=== PATIENT | female | born 1990 | race Asian ===

== ENCOUNTER 2016-10-25 20:04 | Emergency (ER) | payer OTHER ==
[~2016-10-25] VITALS: Ht 154.9 cm; Wt 56.8 kg
[~2016-10-25 20:04] MED LIST: BIRTH CONTROL; FOLIC ACID0.4 MG PO; IBU600 MG PO; MOTRIN 600600 MG/TAB PO; PERCOCET 325 MG1 TA2 PO; PHENERGAN25 MG RC; PRENATAL1 TA1 PO; PRENATAL1 TA7 PO; ZOFRAN 4MG T4 MG/TAB PO
[2016-10-25 20:13] VITALS: BP 119/70; TEMP 98.2
[2016-10-25 21:15] LABS: BASO % 0.4 % (0.0-2.0); EOS # 0.2 (0.0-0.7); EOS % 3.9 % (0-4.0); GRAN # 2.4 (1.4-6.5); GRAN % 49.1 % (42.2-75.2); HEMATOCRIT 37.2 % (37.0-47.0); HEMOGLOBIN 12.1 g/dl (12.5-16.0); LYMPH # 1.7 (1.2-3.4); LYMPH % 34.8 % (20.0-51.0); MEAN CELL VOLUME 91 fl (80.0-100.0); MEAN CORPUSCULAR HEMOGLOBIN 30 pg (27.0-31.0); MEAN CORPUSCULAR HGB CONC 33 g/dl (33.0-37.0); MONO # 0.6 (0.1-0.6); MONO % 11.6 % (1.7-9.3); PLATELET COUNT 232 K/mm3 (130-400); RED BLOOD COUNT 4.09 M/mm3 (4.10-5.30); REDCELL DISTRIBUTION WIDTH-CV 12.7 % (11.5-14.5); WHITE BLOOD COUNT 4.9 K/mm3 (4.8-10.8)
[2016-10-25 21:26] LABS: ADJUSTED CALCIUM 9.2 mg/dL (8.4-10.2); ALBUMIN 4.6 gm/dL (3.5-5.0); BILIRUBIN,TOTAL 0.7 mg/dL (0.0-1.0); CALCIUM 9.7 mg/dL (8.4-10.2); CREATININE, serum 0.4 mg/dL (0.52-1.25); POTASSIUM 3.4 mmol/L (3.4-5.0); TOTAL PROTEIN 8.1 gm/dL (6.4-8.2)
[2016-10-25 21:31] LABS: PH 5 (5-8); URINE APPEARANCE Clear; URINE BACTERIA None Seen /hpf; URINE BILIRUBIN Negative (NEGATIVE); URINE BLOOD 1+ (NEGATIVE); URINE COLOR Yellow; URINE GLUCOSE Negative (NEGATIVE); URINE KETONE Negative (NEGATIVE); URINE RBC 0-2 /hpf; URINE UROBILINOGEN Negative (NEGATIVE); URINE WBC 0-2 /hpf
[2016-10-25] MEDS ORDERED: ZOFRAN ODT4 MG PO (22:19)
[2016-10-25 22:20] VITALS: PULSE 88
== END 2016-10-25 22:20 | disposition home or self-care (01) ==
LOC: COL.ER 20:04
PROVIDERS: Family Medicine
DX: R10.11 Right upper quadrant pain (principal); R11.0 Nausea
CPT/HCPCS: J2405; J7030

== ENCOUNTER 2017-05-21 13:49 | Emergency (ER) | payer OTHER ==
[~2017-05-21 13:49] MED LIST changes: +ZOFRAN ODT4 MG PO
[2017-05-21 13:52] VITALS: BP 115/72; TEMP 98.1
[2017-05-21 14:37] LABS: HEMATOCRIT 37.4 % (37.0-47.0); MEAN CELL VOLUME 94 fl (80.0-100.0); MEAN CORPUSCULAR HEMOGLOBIN 30 pg (27.0-31.0); MEAN CORPUSCULAR HGB CONC 32 g/dl (33.0-37.0); MEAN PLATELET VOLUME 9.7 fl (7.4-10.4); PLATELET COUNT 233 K/mm3 (130-400); WHITE BLOOD COUNT 2.8 K/mm3 (4.8-10.8)
[2017-05-21 14:55] LABS: ADJUSTED CALCIUM 8.7 mg/dL (8.4-10.2); ALBUMIN 4.8 gm/dL (3.5-5.0); BILIRUBIN,TOTAL 0.6 mg/dL (0.0-1.0); CALCIUM 9.3 mg/dL (8.4-10.2); CREATININE, serum 0.44 mg/dL (0.52-1.25); TOTAL PROTEIN 8.3 gm/dL (6.4-8.2)
[2017-05-21 15:13] LABS: COLLECTION METHOD CLEAN CATCH
[2017-05-21 15:23] LABS: MUCOUS Present /lpf; PH 6 (5-8); SQUAMOUS EPITHELIAL 0-2 /hpf; URINE APPEARANCE Clear; URINE BACTERIA None Seen /hpf; URINE BILIRUBIN Negative (NEGATIVE); URINE BLOOD 2+ (NEGATIVE); URINE COLOR Yellow; URINE GLUCOSE Negative (NEGATIVE); URINE KETONE Negative (NEGATIVE); URINE LEUKOCYTE ESTERASE Negative (NEGATIVE); URINE PROTEIN(semi-quant) Negative (NEGATIVE); URINE RBC 0-2 /hpf; URINE UROBILINOGEN Negative (NEGATIVE); URINE WBC 0-2 /hpf
[2017-05-21 15:25] LABS: TSH w REFLEX 1.42 uIU/mL (0.465-4.680)
[2017-05-21 15:37] VITALS: PULSE 90
== END 2017-05-21 15:37 | disposition home or self-care (01) ==
LOC: COL.ER 13:49
PROVIDERS: Physician Assistant Medical
DX: R55 Syncope and collapse (principal)

== ENCOUNTER 2017-09-18 12:28 | Emergency (ER) | payer OTHER ==
[~2017-09-18] VITALS: Ht 154.9 cm; Wt 58.0 kg
[2017-09-18 12:34] VITALS: TEMP 98.5
[2017-09-18] MEDS ORDERED: SPRINTEC 35 MCG1 TAB PO (12:37)
[2017-09-18 13:08] LABS: COLLECTION METHOD CLEAN CATCH
[2017-09-18 13:17] LABS: MUCOUS Present /lpf; PH 5 (5-8); SQUAMOUS EPITHELIAL 0-2 /hpf; URINE APPEARANCE Hazy; URINE BACTERIA None Seen /hpf; URINE BILIRUBIN Negative (NEGATIVE); URINE BLOOD Negative (NEGATIVE); URINE COLOR Yellow; URINE GLUCOSE Negative (NEGATIVE); URINE KETONE Negative (NEGATIVE); URINE LEUKOCYTE ESTERASE Negative (NEGATIVE); URINE NITRATE Negative (NEGATIVE); URINE PROTEIN(semi-quant) Negative (NEGATIVE); URINE RBC 0-2 /hpf; URINE UROBILINOGEN Negative (NEGATIVE)
[2017-09-18 13:38] LABS: BASO % 0.2 % (0.0-2.0); EOS # 0.1 (0.0-0.7); EOS % 2.8 % (0-4.0); GRAN # 2.6 (1.4-6.5); GRAN % 60.3 % (42.2-75.2); LYMPH # 1.1 (1.2-3.4); LYMPH % 26.2 % (20.0-51.0); MEAN CELL VOLUME 90 fl (80.0-100.0); MEAN CORPUSCULAR HGB CONC 33 g/dl (33.0-37.0); MEAN PLATELET VOLUME 9.9 fl (7.4-10.4); MONO # 0.4 (0.1-0.6); MONO % 10.3 % (1.7-9.3); PLATELET COUNT 218 K/mm3 (130-400); RED BLOOD COUNT 3.88 M/mm3 (4.10-5.30); REDCELL DISTRIBUTION WIDTH-CV 12.3 % (11.5-14.5)
[2017-09-18 13:41] LABS: ALBUMIN 4.3 gm/dL (3.5-5.0); BILIRUBIN,TOTAL 0.6 mg/dL (0.0-1.0); C-REACTIVE PROTEIN 0.6 mg/dL (0.0-0.9); CALCIUM 9.2 mg/dL (8.4-10.2); CREATININE, serum 0.4 mg/dL (0.52-1.25); HEMOGLOBIN 11.6 g/dl (12.5-16.0); MEAN CORPUSCULAR HEMOGLOBIN 30 pg (27.0-31.0); TOTAL PROTEIN 8.2 gm/dL (6.4-8.2)
[2017-09-18 14:43] VITALS: BP 112/80; PULSE 86
== END 2017-09-18 14:44 | disposition home or self-care (01) ==
LOC: COL.ER 12:28
PROVIDERS: Physician Assistant
DX: R10.11 Right upper quadrant pain (principal)
CPT/HCPCS: J2405; J7030

== ENCOUNTER → 2017-09-20 | Outpatient (CLI) | payer OTHER ==
[~2017-09-20] MED LIST changes: +SPRINTEC 35 MCG1 TAB PO
== END ==
LOC: COL.RAD 09:59
DX: R10.11 Right upper quadrant pain (principal)
CPT/HCPCS: A9537; J2805

== ENCOUNTER 2018-07-17 10:10 | Emergency (ER) | payer OTHER ==
[~2018-07-17] VITALS: Ht 152.4 cm; Wt 55.5 kg
[2018-07-17 10:14] VITALS: TEMP 98.1
[2018-07-17 10:37] LABS: COLLECTION METHOD CLEAN CATCH
[2018-07-17 10:42] LABS: BASO % 0.3 % (0.0-2.0); EOS # 0.1 (0.0-0.7); EOS % 2.6 % (0-4.0); GRAN # 1.8 (1.4-6.5); GRAN % 46.7 % (42.2-75.2); HEMATOCRIT 38.7 % (37.0-47.0); HEMOGLOBIN 12.6 g/dl (12.5-16.0); LYMPH # 1.5 (1.2-3.4); LYMPH % 39.4 % (20.0-51.0); MEAN CELL VOLUME 92 fl (80.0-100.0); MEAN CORPUSCULAR HEMOGLOBIN 30 pg (27.0-31.0); MEAN CORPUSCULAR HGB CONC 33 g/dl (33.0-37.0); MEAN PLATELET VOLUME 10.2 fl (7.4-10.4); MONO # 0.4 (0.1-0.6); MONO % 10.2 % (1.7-9.3); PLATELET COUNT 260 K/mm3 (130-400); REDCELL DISTRIBUTION WIDTH-CV 12.5 % (11.5-14.5)
[2018-07-17 10:44] LABS: MUCOUS Present /lpf; PH 5 (5-8); SQUAMOUS EPITHELIAL 0-2 /hpf; URINE APPEARANCE Clear; URINE BACTERIA None Seen /hpf; URINE BILIRUBIN Negative (NEGATIVE); URINE BLOOD Negative (NEGATIVE); URINE COLOR Yellow; URINE GLUCOSE Negative (NEGATIVE); URINE KETONE Negative (NEGATIVE); URINE LEUKOCYTE ESTERASE Negative (NEGATIVE); URINE NITRATE Negative (NEGATIVE); URINE PROTEIN(semi-quant) Negative (NEGATIVE); URINE RBC 0-2 /hpf; URINE UROBILINOGEN Negative (NEGATIVE)
[2018-07-17 10:52] LABS: ALBUMIN 4.5 gm/dL (3.5-5.0); BILIRUBIN,TOTAL 0.4 mg/dL (0.0-1.0); CALCIUM 9.6 mg/dL (8.4-10.2); CREATININE, serum 0.4 mg/dL (0.52-1.25); POTASSIUM 3.9 mmol/L (3.4-5.0); TOTAL PROTEIN 8.4 gm/dL (6.4-8.2)
[2018-07-17] MEDS ORDERED: NORCO 325 MG-51 TAB PO (13:18)
[2018-07-17] MEDS ORDERED: ZOFRAN 4MG T4 MG/TAB PO (13:18)
[2018-07-17 13:31] VITALS: BP 105/72; PULSE 95
== END 2018-07-17 13:33 | disposition home or self-care (01) ==
LOC: COL.ER 10:10
PROVIDERS: Emergency Medicine
DX: R10.31 Right lower quadrant pain (principal)
CPT/HCPCS: J1885; J2405; J7030; Q9967

== ENCOUNTER 2019-07-18 13:11 | Emergency (ER) | payer OTHER ==
[~2019-07-18] VITALS: Ht 154.9 cm; Wt 55.9 kg
[~2019-07-18 13:11] MED LIST changes: +NORCO 325 MG-51 TAB PO
[2019-07-18 13:27] VITALS: TEMP 99
[2019-07-18 14:14] LABS: EOS # 0.1 (0.0-0.7); EOS % 1.7 % (0-4.0); GRAN # 1.2 (1.4-6.5); GRAN % 39.4 % (42.2-75.2); LYMPH # 1.2 (1.2-3.4); LYMPH % 39.5 % (20.0-51.0); MEAN CELL VOLUME 93 fl (80.0-100.0); MEAN CORPUSCULAR HEMOGLOBIN 30 pg (27.0-31.0); MEAN CORPUSCULAR HGB CONC 33 g/dl (33.0-37.0); MEAN PLATELET VOLUME 10.2 fl (7.4-10.4); MONO # 0.6 (0.1-0.6); MONO % 19.4 % (1.7-9.3); PLATELET COUNT 195 K/mm3 (130-400); RED BLOOD COUNT 3.97 M/mm3 (4.10-5.30); REDCELL DISTRIBUTION WIDTH-CV 12.2 % (11.5-14.5)
[2019-07-18 14:22] LABS: ALBUMIN 4.6 gm/dL (3.5-5.0); BILIRUBIN,TOTAL 0.4 mg/dL (0.0-1.0); C-REACTIVE PROTEIN 1.3 mg/dL (0.0-0.9); CALCIUM 9.3 mg/dL (8.4-10.2); CREATININE, serum 0.37 (0.52-1.25); POTASSIUM 3.7 mmol/L (3.4-5.0); TOTAL PROTEIN 8.4 gm/dL (6.4-8.2)
[2019-07-18 14:44] LABS: HEMATOCRIT 36.9 % (37.0-47.0)
[2019-07-18 15:06] LABS: COLLECTION METHOD CLEAN CATCH
[2019-07-18 15:35] LABS: AMORPHOUS CRYSTAL Present /uL; MUCOUS Present /lpf; PH 5 (5-8); URINE APPEARANCE Turbid; URINE BACTERIA None Seen /hpf; URINE BILIRUBIN Negative (NEGATIVE); URINE BLOOD Negative (NEGATIVE); URINE COLOR Amber; URINE GLUCOSE Negative (NEGATIVE); URINE KETONE Negative (NEGATIVE); URINE LEUKOCYTE ESTERASE Negative (NEGATIVE); URINE NITRATE Negative (NEGATIVE); URINE PROTEIN(semi-quant) Negative (NEGATIVE); URINE RBC None Seen /hpf; URINE UROBILINOGEN Negative (NEGATIVE)
[2019-07-18] MEDS ORDERED: ZOFRAN ODT4 MG PO (16:01)
[2019-07-18 16:20] VITALS: BP 113/85; PULSE 91
== END 2019-07-18 16:25 | disposition home or self-care (01) ==
LOC: COL.ER 13:11
PROVIDERS: Physician Assistant
DX: J11.1 Influenza due to unidentified influenza virus with other respiratory manifestations (principal)
CPT/HCPCS: J2270; J2405; J7030

== ENCOUNTER 2020-06-07 17:46 | Outpatient (CLI) | payer OTHER ==
[~2020-06-07] VITALS: Ht 154.9 cm; Wt 69.9 kg
--- NOTE | 2020-06-07 17:40 | NUR ---
Patient ambulatory onto unit from office for NST due to BPP of 12/06. Patient changes into gown. EFMs on, VS taken. Patient reports good movement, irregular tightening with contractions. Denies vaginal bleeding or leaking of fluid. Will obtain NST and notify for further orders.
[2020-06-07] MEDS ORDERED: PRENATAL VITAMI1 TA3 PO (17:53)
[2020-06-07] MEDS ORDERED: NATURAL IRON65 MG PO (17:53)
--- NOTE | 2020-06-07 18:20 | NUR ---
Discharge instructions given to patient and . Return precautions reviewed. Patient and verbalize understanding. Ambulatory off of unit at this time.
== END 2020-06-07 18:20 | disposition home or self-care (01) ==
LOC: LDRO 17:46
DX: Z36.89 Encounter for other specified antenatal screening (principal); O62.9 Abnormality of forces of labor, unspecified; Z3A.32 32 weeks gestation of pregnancy